=== PATIENT | female | born 1965 | race Caucasian/White ===

== ENCOUNTER 2021-03-29 01:55 | Day surgery (SDC) | payer OTHER, SELFPAY ==
[2021-03-26 14:43] VITALS: BMI 25.4
--- NOTE | 2021-03-28 13:49 | WPDANESEPPF ---
Anes - Initial Pre Proc Eval Procedure: Operation Date: 03/29/21 14:00 Proposed Procedures p Excision Mass Left Shoulder - Valerio Krause MD Date/Time: 03/28/21 13:49 Surgeon: Valerio Krause MD Pre Op Diagnosis: Mass Left Shoulder Patient Data Age: 55 Gender: F Height: 1.55 m Weight: 61.24 kg Allergies Allergy/AdvReac Type Severity Reaction Status Date / Time No Known Allergies Allergy Verified 03/29/21 12:39 Home Medications Medication Instructions Recorded Confirmed Type levothyroxine 50 mcg tablet 62.5 mcg PO QAM tablet 02/22/21 03/26/21 History omega-3 fatty acids [Fish Oil 1 tablet PO DAILY 02/22/21 03/26/21 History Concentrate] docusate sodium 100 mg capsule 100 mg PO BID #14 cap 03/14/21 03/26/21 Rx hydrocodone 5 mg-acetaminophen 325 1 tablet PO Q6H PRN #15 tablet 03/14/21 03/26/21 Rx mg tablet ondansetron HCl 4 mg tablet 4 mg PO Q6H PRN #30 tablet 03/14/21 03/26/21 Rx Patient hx anesthesia problems: none Family hx anesthesia problems: none PMFSH Past Medical History Medical History (Updated 03/28/21 @ 13:50 by Greg Christianson MD) Anxiety Hypothyroidism Surgical History Surgical History History of left oophorectomy History of tubal ligation Hx of removal of cyst Family History Family History Mother Family history of mental disorder Depression Father Family history of cataracts Family history of hearing loss Other Family history of Alzheimer's disease Family history of alcoholism Family history of arthritis Social History Social History Smoking packs per day: 1 Smoking cigarettes per day: 20.0 Years smoked: 20 Smoking pack-years: 20.00 Smoking status: Former smoker Tobacco type: cigarettes Smoking end date: 03/26/01 Alcohol intake: current Alcohol use details: glass of wine once a month Substance use: never Substance use type: does not use Last use: 2000 Living arrangements: with family Gender identity (if verbalized by the patient): Female Sexual Orientation (if Verbalized by the Patient): Straight or Heterosexual Spiritual care concerns: No Anes - Eval Final PreProcedure Day of Procedure 03/28/21 13:49 Patient weight: normal Heart: regular rate and rhythm Lungs: clear to auscultation and normal air movement Airway: Mallampati scale class II Neurological: alert and oriented Last oral intake: >/= 8 hours ASA classification: II Emergent: no Anesthetic plan: proceed Anesthesia type and monitoring: general GIVS and LMA Informed Consent: The patient's anesthetic plan and its attendant risks and benefits were discussed with the patient/family/POA. Questions were solicited and answers provided to the satisfaction of the patient/family/POA.
[2021-03-29 12:10] VITALS: BP 105/65; PULSE 68; RESP 18; TEMP 36.7; O2SAT 100
[2021-03-29] MEDS: LACTATED RINGERS 1,000 ML 30 ML IV CONT (12:40)
--- NOTE | 2021-03-29 14:05 | WPDHPUPDATE1 ---
History and Physical Update Update Date/Time: 03/29/21 14:05 History and Physical has been reviewed, including an updated exam of the patient. There are NO changes in the patient's condition. Risks, benefits, and alternatives have been discussed and questions answered. Patient agrees to proceed with procedure.
--- NOTE | 2021-03-29 14:30 | W.PM.PROC2 ---
Procedure Note - Detailed Date of Procedure 03/29/21 Pre-op Diagnosis Mass Left Shoulder Post-op Diagnosis same Procedure Performed Excision subcutaneous mass left posterior shoulder 11cm. Surgeon Valerio Krause MD Anesthesia MAC Findings Mass appeared consistent with lipoma. No evidence of neurovascular injury. Closed in many layers to obliterate all space. Description of Procedure Preoperatively the risks, benefits, alternatives were discussed in extensive detail. I wanted her to be very realistic about the risks involved as well as expectations. Made sure answered all of her questions to her satisfaction. Consent obtained. The mass was marked out with her verification. She was taken to the operating room. Placed in a lateral decubitus position. Anesthesia anesthesiology. Prepped and draped in a standard sterile fashion. Surgical time-out taken. 1% lidocaine and 0.25% Marcaine with epinephrine was used anesthetize locally. A 15 blade used to make an incision over mass. Dissection was continued down till the mass identified sent to pathology. Findings as above. I copiously irrigated with saline solution and verified a strict hemostasis. I closed in many layers to obliterate all space using 2-0 Vicryl followed by 3-0 Stratafix in a running subcuticular 4-0 Monocryl and tissue glue. Dressings placed. [place] taken the PACU without difficulty. All instrument sponge counts were correct at the end the case. Estimated Blood Loss 5 Drains No Packing No Pathology yes (Left posterior shoulder subcutaneous mass) Complications No immediate complications Condition stable Disposition PACU
[2021-03-29] MEDS: BUPIVACAINE HCL 0.25% PF 30 ML VIAL INFILTRATE (14:36)
[2021-03-29] MEDS: ceFAZolin 2 GM/D5W 50 ML 2 GM/50 ML BAG IVPB (14:36)
[2021-03-29 15:07] VITALS: BP 93/61; PULSE 75; RESP 14; O2SAT 97
[2021-03-29 15:30] VITALS: BP 115/74; PULSE 78; RESP 14
[2021-03-29] MEDS: ONDANSETRON INJ 4 MG/2 ML VIAL IV PUSH (15:39)
[2021-03-29 16:00] VITALS: BP 131/78; PULSE 79; RESP 16
--- NOTE | 2021-03-29 16:00 | SUR.PHASEII ---
1600- Making rounds on patient and she verbalized still feeling some nausea and dizziness after administration of IVP zofran. Offered to call anesthesiologist for additional orders for anti nausea medication and to hang a second bag of IV fluids. Patient refused second bag of IV fluids and requested this RN not to call anesthesia doctor. Per patient she would like to rest in recliner longer until time for discharge. Offered her a cool wash cloth and she accepted. Turned off lights and gave cool wash cloth to patient. Made patient aware I will continue to monitor her until she is ready for discharge home.
[2021-03-29 16:30] VITALS: BP 135/78; PULSE 75; RESP 16
--- NOTE | 2021-03-29 16:30 | SUR.PHASEII ---
1630- Patient reports having episode of emesis. This RN offered to call anesthesiologist for additional anti nausea medication. Per patient she does not want additional medications and refusing for this RN to call doctor. Water brought to patient and encouraged her to call RN if she has any needs. Will continue to monitor patient until time of discharge.
[2021-03-29 16:55] VITALS: BP 137/79; PULSE 80; RESP 16
== END 2021-03-29 17:05 | disposition home or self-care (01) ==
PROVIDERS: PCP Physician Assistant; Visit Provider Surgery Plastic and Reconstructive Surgery
PROC: (CPT 11406; principal; 2021-03-29 14:00)
DX: D17.22 Benign lipomatous neoplasm of skin and subcutaneous tissue of left arm (principal)
CPT/HCPCS: 11406; 12034; 88304; J0690; J2405; J2704; J3010; J7120

== ENCOUNTER 2024-02-04 06:20 | Day surgery (SDC) | payer OTHER, SELFPAY ==
[2024-01-06 11:02] VITALS: BMI 24.2
[2024-01-26 10:29] VITALS: BMI 23.7
[2024-02-04 07:04] VITALS: BP 105/70; PULSE 64; RESP 15; TEMP 36.6; O2SAT 100
[2024-02-04] MEDS: LACTATED RINGERS 1,000 ML 150 ML IV CONT (07:06)
--- NOTE | 2024-02-04 07:18 | P.PNAN_ITS ---
Anes - Initial Pre Proc Eval Procedure: Operation Date: 02/04/24 08:30 Proposed Procedures p Screening Colonoscopy - Ankur Yates MD Date/Time: 02/04/24 07:18 Surgeon: Ankur Yates MD Pre Op Diagnosis: Neoplasm Screening Patient Data Age: 58 Gender: F Height: 1.55 m Weight: 56.9 kg Last Vital Signs Temp 36.6 C 02/04/24 07:04 Pulse 64 02/04/24 07:04 Resp 15 02/04/24 07:04 BP 105/70 02/04/24 07:04 Pulse Ox 100 02/04/24 07:04 O2 Del Method Room Air 02/04/24 07:04 Allergies Allergy/AdvReac Type Severity Reaction Status Date / Time fentanyl Allergy Other Verified 02/04/24 07:03 Home Medications Medication Instructions Recorded Confirmed Type levothyroxine 50 mcg tablet 62.5 mcg PO QAM 02/22/21 02/04/24 History omega-3 fatty acids [Fish Oil 1 tablet PO DAILY 02/22/21 02/04/24 History Concentrate] Patient hx anesthesia problems: none Family hx anesthesia problems: none Results Review: All pre-operative results and documents have been reviewed as part of the pre- operative evaluation. [facility] Past Medical History Medical History Anxiety Hypothyroidism Surgical History Surgical History History of left oophorectomy History of tubal ligation Hx of removal of cyst Family History Family History Mother Family history of mental disorder Depression Father Family history of cataracts Family history of hearing loss Other Family history of Alzheimer's disease Family history of alcoholism Family history of arthritis Social History Social History Smoking packs per day: 1 Smoking cigarettes per day: 20.0 Years smoked: 20 Smoking pack-years: 20.00 Smoking status: Former smoker Tobacco type: cigarettes Smoking end date: 03/26/01 Alcohol intake: current Drinks per week: 1 Alcohol use details: glass of wine once a month Substance use: never Substance use type: does not use Last use: 2000 Living arrangements: with family Gender identity (if verbalized by the patient): Female Sexual Orientation (if Verbalized by the Patient): Straight or Heterosexual Spiritual care concerns: No Anes - Eval Final PreProcedure Day of Procedure 02/04/24 07:18 Patient weight: normal Heart: regular rate and rhythm Lungs: clear to auscultation Airway: Mallampati scale class II Neurological: alert and oriented Last oral intake: >/= 8 hours ASA classification: II Emergent: no Anesthetic plan: proceed Anesthesia type and monitoring: general GIVS and standard monitoring Results Review: All pre-operative results and documents have been reviewed as part of the pre- operative evaluation. Informed Consent: The patient's anesthetic plan and its attendant risks and benefits were discussed with the patient/family/POA. Questions were solicited and answers provided to the satisfaction of the patient/family/POA.
--- NOTE | 2024-02-04 07:18 | PM.HPGS ---
History of Present Illness History of Present Illness Consent: Risks, benefits, and alternatives have been discussed and questions answered. Patient agrees to proceed with procedure. Chief complaint: Neoplasm Screening Narrative: Georgia Martinez is a 58 year old female presents for screening colonoscopy. Patient's current weight appetite and bowel are normal. Patient denies abdominal pain. She has had no bleeding. Family history is significant that grandmother and an uncle have had colon cancer. There are no first-degree relatives with colon cancer. Review of Systems Review of Systems: All systems reviewed & are unremarkable except as noted in HPI and below PMFSH Past Medical History Medical History Anxiety Hypothyroidism Surgical History Surgical History History of left oophorectomy History of tubal ligation Hx of removal of cyst Family History Family History Mother Family history of mental disorder Depression Father Family history of cataracts Family history of hearing loss Other Family history of Alzheimer's disease Family history of alcoholism Family history of arthritis Social History Social History Smoking packs per day: 1 Smoking cigarettes per day: 20.0 Years smoked: 20 Smoking pack-years: 20.00 Smoking status: Former smoker Tobacco type: cigarettes Smoking end date: 03/26/01 Alcohol intake: current Drinks per week: 1 Alcohol use details: glass of wine once a month Substance use: never Substance use type: does not use Last use: 2000 Living arrangements: with family Gender identity (if verbalized by the patient): Female Sexual Orientation (if Verbalized by the Patient): Straight or Heterosexual Spiritual care concerns: No Meds Home Medications and Allergies Home Medications Medication Instructions Recorded Confirmed Type levothyroxine 50 mcg tablet 62.5 mcg PO QAM 02/22/21 02/04/24 History omega-3 fatty acids [Fish Oil 1 tablet PO DAILY 02/22/21 02/04/24 History Concentrate] Allergies Allergy/AdvReac Type Severity Reaction Status Date / Time fentanyl Allergy Other Verified 02/04/24 07:03 Vital Signs Vital Signs - 24 hr 02/04/24 07:04 Temperature 97.8 F Pulse Rate 64 Respiratory Rate 15 Blood Pressure 105/70 Pulse Oximetry 100 Oxygen Delivery Room Air Exam Narrative: Physical exam reveals patient to be alert. Vital signs are stable. HEENT exam is unremarkable. Patient is anicteric. Lungs are clear to auscultation and to percussion. Heart is without murmur or extra sounds. Abdomen bowel sounds are present soft nontender with no organomegaly. Digital and External rectal exam normal. Assessment and Plan Assessment and plan (1) Screen for colon cancer: Code(s): Z12.11 - Encounter for screening for malignant neoplasm of colon Status: Acute Assessment and Plan: Patient presents today for neoplasia screening colonoscopy. Further recommendations may be given after endoscopy
[2024-02-04 08:43] VITALS: BP 117/74; PULSE 70; RESP 20; O2SAT 100
[2024-02-04 08:53] VITALS: BP 108/71; PULSE 61; RESP 18; O2SAT 100
[2024-02-04 09:03] VITALS: BP 110/65; PULSE 64; RESP 18; O2SAT 100
--- NOTE | 2024-02-04 09:23 | WPDANESPN ---
Anes - Prog Note Post-Op Date/Time: 02/04/24 09:23 Cardiovascular status: normal Respiratory status: normal Airway patency: baseline Mental status: baseline Post-Op hydration status: normal Vital Signs: Last Vital Signs Temp 36.6 C 02/04/24 07:04 Pulse 64 02/04/24 09:03 Resp 18 02/04/24 09:03 BP 110/65 02/04/24 09:03 Pulse Ox 100 02/04/24 09:03 O2 Del Method Room Air 02/04/24 09:03 Pain Score (VAS): 0/10 I/O: Intake & Output 02/03/24 02/04/24 02/04/24 23:59 07:59 15:59 Intake Total 700 Balance 700 Patient Feedback: Patient satisfied with anesthetic care.
== END 2024-02-04 09:20 | disposition home or self-care (01) ==
PROVIDERS: PCP Obstetrics & Gynecology; Visit Provider Internal Medicine Gastroenterology
PROC: 0DJD8ZZ Inspection of Lower Intestinal Tract, Via Natural or Artificial Opening Endoscopic (ICD-10-PCS; CPT 45378; principal; 2024-02-04 08:30)
DX: Z12.11 Encounter for screening for malignant neoplasm of colon (principal); K64.8 Other hemorrhoids
CPT/HCPCS: 45378